=== PATIENT | male | born 1985 | race Caucasian/White ===

== ENCOUNTER 2018-11-17 23:30 | Emergency (ER) | payer BC, OTHER ==
[~2018-11-17] VITALS: Ht 188 cm; Wt 99.8 kg
--- NOTE | 2018-11-17 23:35 | NUR ---
PT CAME TO EMERGENCY DEPT. COMPLAINING OF CHEST PAIN, ABD PAIN FOR 4 DAYS AND TINGLING IN THE FINGERS. PT AXO4. RESPIRATIONS EVEN AND UNLABORED. PT PUT ON THE MONITOR AND PULSE OX. PENDING EVAL FROM ER .
--- NOTE | 2018-11-17 23:54 | NUR ---
EKG at bedside.
--- NOTE | 2018-11-17 23:55 | NUR ---
Xray at bedside.
[2018-11-17] MEDS ORDERED: NITROGLYCERIN PACKET 1 GM PACKET ONE (23:56)
[2018-11-17] MEDS ORDERED: LORAZEPAM INJ 2 MG/ML VIAL ONE (23:57)
[2018-11-17 23:58] LABS: BASOPHILS % (AUTO) 0.3 % (0.0-2.0); EOSINOPHILS % (AUTO) 2.2 % (0.0-6.0); HEMATOCRIT 46 % (39-51); HEMOGLOBIN 15.6 g/dL (13.5-17.5); LYMPHOCYTES # (AUTO) 2.6 /CMM (0.8-4.8); LYMPHOCYTES % (AUTO) 39.1 % (20.0-44.0); MEAN CORPUSCULAR HGB CONC 34 g/dl (31.0-36.0); MEAN CORPUSCULAR VOLUME 92 fL (80-96); MONOCYTES # (AUTO) 0.5 /CMM (0.1-1.30); MONOCYTES % (AUTO) 7.9 % (2.0-12.0); NEUTROPHILS # (AUTO) 3.4 /CMM (1.8-8.9); NEUTROPHILS % (AUTO) 50.5 % (43.0-81.0); PLATELET COUNT (AUTO) 182 /CMM (150-450); RED BLOOD CELL COUNT(AUTO) 4.96 MIL/uL (4.5-6.0); WHITE BLOOD COUNT (AUTO) 6.8 K/uL (4.3-11.0)
[2018-11-18] MEDS ORDERED: LORAZEPAM INJ 2 MG/ML VIAL IV ONE
[2018-11-18] MEDS ORDERED: ASPIRIN 81 MG TAB.CHEW PO ONE
[2018-11-18] MEDS ORDERED: NITROGLYCERIN PACKET 1 GM PACKET TD ONE
[2018-11-18 00:03] LABS: CARBON DIOXIDE 30 mmol/L (21-32); CHLORIDE 102 mmol/L (98-107); GLUCOSE 131 mg/dL (74-106); POTASSIUM 3.8 mmol/L (3.5-5.1); SODIUM SERUM 141 mmol/L (136-145); UREA NITROGEN, BLOOD 20 mg/dL (7-18)
[2018-11-18 00:16] LABS: ALANINE AMINOTRANSFERASE 31 U/L (12-78); ALBUMIN 4.2 g/dL (3.4-5.0); ALKALINE PHOSPHATASE 72 U/L (46-116); ASPARTATE AMINOTRANSFERASE 17 U/L (15-37); BILIRUBIN,DIRECT 0.1 mg/dL (0.0-0.2); BILIRUBIN,TOTAL 0.7 mg/dL (0.2-1.0); TOTAL PROTEIN, SERUM 7.7 g/dL (6.4-8.2)
[2018-11-18 00:17] LABS: B-TYPE NATRIURETIC PEPTIDE 6 PG/ML (0-125)
--- NOTE | 2018-11-18 00:55 | NUR ---
Patient discharged to home in stable condition. Written and verbal after care instructions given. Patient verbalizes understanding of instruction. IV removed. Catheter intact and site benign. Pressure and 4x4 applied to site. No bleeding noted. Pt instructed not to drive. Pt ambulatory with steady gait.
[2018-11-18 01:00] VITALS: BP 120/76
== END 2018-11-18 01:01 | disposition home or self-care (01) ==
LOC: ER 23:36
DX: R07.89 Other chest pain (principal)
CPT/HCPCS: 36415; 71045; 80048; 80076; 83880; 84484; 85025; 93005; 96374; 99284; A4606; J2060

== ENCOUNTER 2020-02-29 00:44 | Emergency (ER) | payer BC ==
[~2020-02-29] VITALS: Ht 188 cm; Wt 93.9 kg
[2020-02-29 00:45] VITALS: BP 144/92
--- NOTE | 2020-02-29 00:50 | NUR ---
PT BIBS FOR C/O L SIDED CP 3-12/31 RADIATING TO THE L ARM SINCE YESTERDAY. + THROBBING HEADACHE. PT AAOX4, VSS, RESPIRATIONS EVEN AND UNLABORED ON RA W/ NAD NOTED. PT CONNECTED TO THE MONITOR AND POX.
--- NOTE | 2020-02-29 01:08 | NUR ---
TIRE AND LUBE TECHNICIAN AT BEDSIDE FOR BLOOD DRAW
--- NOTE | 2020-02-29 01:41 | NUR ---
Patient discharged to home in stable condition. Written and verbal after care instructions given. Patient verbalizes understanding of instruction.
== END 2020-02-29 01:49 | disposition home or self-care (01) ==
LOC: ER 00:45
DX: R07.89 Other chest pain (principal); R06.02 Shortness of breath
CPT/HCPCS: 36415; 71046; 84484-TC

== ENCOUNTER 2022-02-19 11:40 | Emergency (ER) | payer BC ==
[~2022-02-19] VITALS: Ht 188 cm; Wt 95.3 kg
--- NOTE | 2022-02-19 11:45 | NUR ---
BIB FRIEND C/O LUQ PRESSURE SINCE LAST NIGHT, DIZZINES, AND NAUSEA PAIN DOES NOT RADIATE 03/02 ON PS. AMBULATORY, AAOX4, PLACED ON BED
--- NOTE | 2022-02-19 11:50 | NUR ---
AT BED SIDE
--- NOTE | 2022-02-19 12:05 | NUR ---
BLOOD DRAWN AND SENT TO LAB
[2022-02-19 12:08] LABS: BILIRUBIN,URINE NEGATIVE (NEGATIVE); COLOR,URINE YELLOW (YELLOW); LEUKOCYTE ESTERASE ,URINE NEGATIVE (NEGATIVE); NITRITE, URINE NEGATIVE (NEGATIVE); PH,URINE 8.5 (5.0-8.0); PROTEIN,URINE NEGATIVE (NEGATIVE); UGLUCOSE NEGATIVE (NEGATIVE); UROBILINOGEN,URINE 0.2 EU/dL (0.2)
[2022-02-19] MEDS ORDERED: ONDANSETRON HCL/PF 4 MG/2 ML VIAL ONE (12:14)
[2022-02-19] MEDS ORDERED: KETOROLAC TROMETHAMINE 15 MG/ML VIAL ONE (12:14)
[2022-02-19] MEDS ORDERED: MAG HYDROX/AL HYDROX/SIMETH 30 ML UDC ONE (12:14)
[2022-02-19] MEDS ORDERED: LIDOCAINE VISCOUS 2% UD 15 ML UDC ONE (12:15)
[2022-02-19] MEDS: LORAZEPAM INJ 2 MG/ML VIAL IV ONE (12:15)
[2022-02-19] MEDS ORDERED: LORAZEPAM INJ 2 MG/ML VIAL ONE (12:15)
[2022-02-19] MEDS ORDERED: FAMOTIDINE/PF INJ 20 MG/2 ML VIAL IV ONE (12:15)
[2022-02-19] MEDS: FAMOTIDINE/PF INJ 20 MG/2 ML VIAL IV ONE (12:17)
[2022-02-19 12:18] LABS: BASOPHILS % (AUTO) 0.3 % (0.0-2.0); EOSINOPHILS % (AUTO) 1.6 % (0.0-6.0); HEMATOCRIT 42 % (39-51); HEMOGLOBIN 14.3 g/dL (13.5-17.5); LYMPHOCYTES # (AUTO) 1.4 K/uL (0.8-4.8); LYMPHOCYTES % (AUTO) 25.5 % (20.0-44.0); MEAN CORPUSCULAR HGB CONC 34 g/dl (31.0-36.0); MEAN CORPUSCULAR VOLUME 91 fL (80-96); MONOCYTES # (AUTO) 0.4 K/uL (0.1-1.30); NEUTROPHILS # (AUTO) 3.6 K/uL (1.8-8.9); NEUTROPHILS % (AUTO) 64.6 % (43.0-81.0); PLATELET COUNT (AUTO) 152 K/uL (150-450); RED BLOOD CELL COUNT(AUTO) 4.62 MIL/uL (4.5-6.0); WHITE BLOOD COUNT (AUTO) 5.6 K/uL (4.3-11.0)
[2022-02-19] MEDS: KETOROLAC TROMETHAMINE INJ 30 MG/ML VIAL IV ONE (12:19)
--- NOTE | 2022-02-19 12:20 | NUR ---
ATIVAN 1.5 MG WASTED WITH TAMIKO PATTERSON RN
--- NOTE | 2022-02-19 12:20 | NUR ---
I WITNESSED THE 1.5 MG ATIVAN -WAS WASTED BY LAVERNE CARLOS
[2022-02-19 12:22] LABS: BACTERIA,URINE None seen /HPF (None Seen); RBC,URINE 0-2 /HPF (0-2); SQUAMOUS EPITHELIAL CELL,UR Rare /HPF (None Seen); WBC,URINE 0-2 /HPF (0-3)
[2022-02-19] MEDS: ONDANSETRON HCL/PF 4 MG/2 ML VIAL IVP ONE (12:22)
[2022-02-19 12:31] LABS: CALCIUM, SERUM 8.6 mg/dL (8.5-10.1); CARBON DIOXIDE 31 mmol/L (21-32); CHLORIDE 103 mmol/L (98-107); CREATININE 0.8 mg/dL (0.6-1.3); GLUCOSE 110 mg/dL (74-106); POTASSIUM 3.6 mmol/L (3.5-5.1); SODIUM SERUM 140 mmol/L (136-145); UREA NITROGEN, BLOOD 16 mg/dL (7-18)
[2022-02-19] MEDS: IV NS 0.9% 1,000 ML BAG IV ONE ×2 (12:33→14:50)
[2022-02-19] MEDS: MAG HYDROX/AL HYDROX/SIMETH 30 ML UDC PO ONE (12:35)
[2022-02-19] MEDS: LIDOCAINE VISCOUS 2% UD 15 ML UDC MM ONE (12:35)
[2022-02-19 12:38] LABS: ALANINE AMINOTRANSFERASE 21 U/L (12-78); ALBUMIN 3.8 g/dL (3.4-5.0); ALKALINE PHOSPHATASE 68 U/L (46-116); ASPARTATE AMINOTRANSFERASE 12 U/L (15-37); BILIRUBIN,DIRECT 0.1 mg/dL (0.0-0.2); BILIRUBIN,TOTAL 0.5 mg/dL (0.2-1.0); LIPASE 55 U/L (73-393); TOTAL PROTEIN, SERUM 7.2 g/dL (6.4-8.2)
[2022-02-19] MEDS ORDERED: IBUP-1955 PO (13:28)
[2022-02-19] MEDS ORDERED: FAMO-131 PO (13:28)
[2022-02-19] MEDS ORDERED: ONDA4TAB5 PO (13:28)
--- NOTE | 2022-02-19 15:15 | NUR ---
IV removed. Catheter intact and site benign. Pressure and 4x4 applied to site. No bleeding noted.Patient discharged to home in stable condition. Written and verbal after care instructions given. Patient verbalizes understanding of instruction.
[2022-02-19 16:00] VITALS: BP 120/90
== END 2022-02-19 15:50 | disposition home or self-care (01) ==
LOC: ER 11:51
DX: R07.89 Other chest pain (principal); R11.2 Nausea with vomiting, unspecified; F17.200 Nicotine dependence, unspecified, uncomplicated; Z79.899 Other long term (current) drug therapy
CPT/HCPCS: 36415; 71045; 80048; 80076; 81001; 83690; 84484 ×2; 85025; 93005; 96361; 96374; 96375; 99285; J1885; J2060; J2405; J3490; J7030 ×2

== ENCOUNTER 2024-04-18 09:01 | Emergency (ER) | payer BC ==
[~2024-04-18] VITALS: Ht 188 cm; Wt 93.9 kg
[~2024-04-18 09:01] MED LIST: FAMO-131 PO; IBUP-1955 PO; ONDA4TAB5 PO
[2024-04-18 09:44] LABS: APPEARANCE,URINE SLIGHTLY CLOUDY (CLEAR); BILIRUBIN,URINE NEGATIVE (NEGATIVE); BLOOD, URINE NEGATIVE Ery/uL (NEGATIVE); COLOR,URINE YELLOW (YELLOW); KETONES,URINE NEGATIVE (NEGATIVE); LEUKOCYTE ESTERASE ,URINE NEGATIVE (NEGATIVE); NITRITE, URINE NEGATIVE (NEGATIVE); PROTEIN,URINE NEGATIVE (NEGATIVE); UGLUCOSE NEGATIVE (NEGATIVE); UROBILINOGEN,URINE 0.2 EU/dL (0.2)
[2024-04-18 09:57] LABS: ADD URINE CULTURE NO; BACTERIA,URINE Rare /HPF (None Seen); RBC,URINE 0-2 /HPF (0-2); SQUAMOUS EPITHELIAL CELL,UR Few /HPF (None Seen)
[2024-04-18] MEDS ORDERED: DOXY-326 PO (10:20)
[2024-04-18] MEDS ORDERED: LIDOCAINE /MPF 1% VIAL 5 ML VIAL ONE (10:26)
[2024-04-18] MEDS ORDERED: CEFTRIAXONE 1 G VIAL ONE (10:26)
[2024-04-18] MEDS: CEFTRIAXONE 1 G VIAL IM ONE (10:33)
[2024-04-18 10:39] VITALS: BP 121/69; TEMP 97.8; O2SAT 99
[2024-04-20 23:06] LABS: CHLAMYDIA TRACHOMATIS NAA Negative (Negative); NEISSERIA GONORRHOEAE NAA Negative (Negative)
== END 2024-04-18 10:39 | disposition home or self-care (01) ==
LOC: ER 09:07
DX: N50.811 Right testicular pain (principal); F17.200 Nicotine dependence, unspecified, uncomplicated
CPT/HCPCS: 99285; 96372; 76870; 87086; 81001; 87491; 87591; J0696; J3490

== ENCOUNTER 2025-07-21 15:09 | Emergency (ER) | payer BC ==
[~2025-07-21] VITALS: Ht 188 cm; Wt 88.5 kg
[~2025-07-21 15:09] MED LIST changes: +DOXY-326 PO
[2025-07-21 15:28] VITALS: BP 117/62; TEMP 97.9
[2025-07-21 16:10] VITALS: O2SAT 99
== END 2025-07-21 16:10 | disposition home or self-care (01) ==
LOC: ER 15:13
DX: F41.9 Anxiety disorder, unspecified (principal); R07.89 Other chest pain; K21.9 Gastro-esophageal reflux disease without esophagitis; F17.200 Nicotine dependence, unspecified, uncomplicated